=== PATIENT | female | born 1955 | race Caucasian/White ===

== ENCOUNTER 2021-09-08 08:04 | Outpatient (CLI) | payer BC | END 2021-09-08 08:05 | disposition home or self-care (01) | LOC: CSHMAMMO 08:04 | PROVIDERS: ATTEND Internal Medicine | DX: Z12.31 Encounter for screening mammogram for malignant neoplasm of breast (principal); Z85.41 Personal history of malignant neoplasm of cervix uteri | CPT/HCPCS: 77063; 77067 ==

== ENCOUNTER 2023-11-15 09:37 | Outpatient (CLI) | payer BC, MEDICARE | END 2023-11-15 09:38 | disposition home or self-care (01) | LOC: CSHMAMMO 09:37 | PROVIDERS: ATTEND Internal Medicine | DX: Z12.31 Encounter for screening mammogram for malignant neoplasm of breast (principal); Z13.820 Encounter for screening for osteoporosis; M85.89 Other specified disorders of bone density and structure, multiple sites; Z78.0 Asymptomatic menopausal state; Z85.41 Personal history of malignant neoplasm of cervix uteri | CPT/HCPCS: 77063; 77067; 77080 ==